=== PATIENT | female | born 1970 | race Two or more races ===

== ENCOUNTER → 2017-04-09 | Outpatient (REF) | payer OTHER | LOC: M SFHCWAGY 08:40 | PROVIDERS: ATTEND Nurse Practitioner Women's Health | DX: Z12.4 Encounter for screening for malignant neoplasm of cervix (principal) ==

== ENCOUNTER → 2017-05-27 | Outpatient (REF) | payer OTHER ==
[2017-05-27 13:32] LABS: FOLLICLE STIMULATING HORMONE 9.9 mIU/mL; LUTEINIZING HORMONE 16.1 mIU/mL
== END ==
LOC: M SFHCPLAZ 11:13
PROVIDERS: ATTEND Nurse Practitioner Women's Health
DX: N95.1 Menopausal and female climacteric states (principal); Z87.42 Personal history of other diseases of the female genital tract; N91.2 Amenorrhea, unspecified

== ENCOUNTER → 2017-05-27 | Outpatient (CLI) | payer OTHER ==
--- NOTE | 2017-05-31 08:08 | REPMRS ---
Patient History The patient states she had a clinical breast exam in 04/2017. Patient is nulliparous. Family history of breast cancer in paternal grandmother at age 70. Took hormonal contraceptives for 15 years beginning at age 22. Digital Woman Screen Mammo: May 27, 2017 - Exam #: [id number] Bilateral CC and MLO view(s) were taken. Technologist: Brianna Hernandez Technologist Prior study comparison: June 23, 2015, digital bilateral screening mammo, performed at [facility]. June 17, 2014, digital bilateral screening mammo, performed at [facility]. June 09, 2013, digital bilateral screening mammo, performed at [facility]. FINDINGS: The breast tissue is heterogeneously dense. This may lower the sensitivity of mammography. There is a moderate amount of heterogeneously dense fibroglandular tissue which is fairly symmetric. There is no interval development of dominant mass, architectural distortion, or clustered microcalcification typical of malignancy. There has been no change in the appearance of the mammogram from the prior studies. ASSESSMENT: BI-RADS/ACR category 1 mammogram. Negative. Recommendation Routine screening mammogram of both breasts in 1 year (for women over age 40). This mammogram was interpreted with the aid of an FDA-approved computer-aided dectection system. Electronically Signed By: Jay Jay Núñez MD 05/31/17 [id number]
== END ==
LOC: M WHC 10:41
PROVIDERS: ATTEND Nurse Practitioner Women's Health
DX: Z12.31 Encounter for screening mammogram for malignant neoplasm of breast (principal)

== ENCOUNTER → 2018-08-13 | Outpatient (REF) | payer OTHER ==
[2018-08-15 14:14] LABS: HPV HYBRID CAPTURE II Negative (Negative)
== END ==
LOC: M SFHCWAGY 10:42
DX: Z12.4 Encounter for screening for malignant neoplasm of cervix (principal); Z87.898 Personal history of other specified conditions

== ENCOUNTER → 2018-08-13 | Outpatient (CLI) | payer OTHER | LOC: M WHC 08:24 | DX: Z12.31 Encounter for screening mammogram for malignant neoplasm of breast (principal) | CPT/HCPCS: 77067 ==

== ENCOUNTER → 2019-08-26 | Outpatient (CLI) | payer OTHER ==
--- NOTE | 2019-08-26 10:36 | REPMRS ---
Patient History The patient states she had a clinical breast exam in 08/2019. Patient is nulliparous. Family history of breast cancer at age 70 in paternal grandmother, breast cancer at age 69 in mother. Taking hormonal contraceptives for 30 years beginning at age 22. 3D TOMOSYNTHESIS WAS PERFORMED. Digital Woman Screen Mammo: August 26, 2019 - Exam #: [id number] Bilateral CC and MLO view(s) were taken. Technologist: Santa Berry, Technologist Prior study comparison: August 13, 2018, bilateral digital woman screen mammo performed at [facility]. May 27, 2017, digital woman screen mammo performed at [facility]. FINDINGS: The breast tissue is extremely dense which could obscure a lesion on mammography. There has been no change in the appearance of the mammogram from the prior studies. There is a moderate amount of residual fibroglandular tissue which is fairly symmetric. There is no interval development of dominant mass, areas of architectural distortion, or clustered microcalcification typical of malignancy. Assessment: BI-RADS/ACR category 1 mammogram. Negative Mammogram. Recommendation Routine screening mammogram in 1 year (for women over age 40). This mammogram was interpreted with the aid of an FDA-approved computer-aided dectection system. THE LIFETIME RISK OF BREAST CANCER IS 26.3%, THEREFORE SUPPLEMENTAL SCREENING MRI OF THE BREASTS IS RECOMMENDED IN 6 MONTHS. Electronically Signed By: Coy Tabor MD 08/26/19 [id number]
== END ==
LOC: M WHC 09:29
PROVIDERS: ATTEND Nurse Practitioner Women's Health
DX: Z12.31 Encounter for screening mammogram for malignant neoplasm of breast (principal); N95.1 Menopausal and female climacteric states; Z80.3 Family history of malignant neoplasm of breast

== ENCOUNTER → 2019-08-28 | Outpatient (REF) | LOC: M LAB LCGH 15:15 | PROVIDERS: ATTEND Surgery | DX: D23.62 Other benign neoplasm of skin of left upper limb, including shoulder (principal) ==

== ENCOUNTER → 2020-02-17 | Outpatient (REF) | payer OTHER ==
[2020-02-17 17:31] LABS: BLOOD UREA NITROGEN 12 MG/DL (7-18); CREATININE FOR GFR 0.67 MG/DL (0.55-1.30); GLOMERULAR FILTRATION RATE > 60.0 (>58)
== END ==
LOC: M PLALAB 15:32
PROVIDERS: ATTEND Nurse Practitioner Women's Health
DX: Z01.812 Encounter for preprocedural laboratory examination (principal)

== ENCOUNTER → 2020-02-19 | Outpatient (CLI) | payer OTHER ==
[~2020-02-19] MED LIST: PROHANCE 279.3MG/ML 15ML VIAL (A9576) As Ordered ONE; PROHANCE 279.3MG/ML 5ML VIAL (A9576) As Ordered ONE
== END ==
LOC: M RAD 09:10
PROVIDERS: ATTEND Nurse Practitioner Women's Health
DX: R92.2 Inconclusive mammogram (principal); Z80.3 Family history of malignant neoplasm of breast; Z53.9 Procedure and treatment not carried out, unspecified reason

== ENCOUNTER → 2020-08-29 | Outpatient (CLI) | payer OTHER ==
--- NOTE | 2020-08-29 10:26 | REPMRS ---
Patient History The patient states she had a clinical breast exam in August 2020. Family history of breast cancer at age 70 in paternal grandmother, breast cancer at age 69 in mother. Taking hormonal contraceptives for 30 years beginning at age 22. 3D TOMOSYNTHESIS WAS PERFORMED. JUSTUS Dumont Digital Woman Screen Mammo: August 29, 2020 - Exam #: [id number] Bilateral CC and MLO view(s) were taken. Technologist: Na Lew, Technologist Prior study comparison: August 26, 2019, bilateral digital woman screen mammo performed at [facility]. August 13, 2018, bilateral digital woman screen mammo performed at [facility]. FINDINGS: The breast tissue is extremely dense which could obscure a lesion on mammography. There has been no change in the appearance of the mammogram from the prior studies. There is a moderate amount of residual fibroglandular tissue which is fairly symmetric. There is no interval development of dominant mass, areas of architectural distortion, or clustered microcalcification typical of malignancy. Assessment: BI-RADS/ACR category 1 mammogram. Negative Mammogram. Recommendation Routine screening mammogram in 1 year (for women over age 40). This mammogram was interpreted with the aid of an FDA-approved computer-aided dectection system. THE LIFETIME RISK OF BREAST CANCER IS 25.9%, THEREFORE SUPPLEMENTAL SCREENING MRI OF THE BREASTS IS RECOMMENDED IN 6 MONTHS. Electronically Signed By: Coy Tabor MD 08/29/20 [id number]
== END ==
LOC: M WHC 09:11
PROVIDERS: ATTEND Nurse Practitioner Women's Health
DX: Z12.31 Encounter for screening mammogram for malignant neoplasm of breast (principal); Z80.3 Family history of malignant neoplasm of breast; Z79.3 Long term (current) use of hormonal contraceptives

== ENCOUNTER → 2021-02-25 | Outpatient (CLI) | payer OTHER ==
[~2021-02-25] MED LIST changes: +CETI10CA2 PO; +JARD1TAB3 PO; +LEVO175T2 PO; +LOSA25TA14 PO; +METF-838 PO; +MONT10TA10 PO; -PROHANCE 279.3MG/ML 15ML VIAL (A9576) As Ordered ONE; -PROHANCE 279.3MG/ML 5ML VIAL (A9576) As Ordered ONE; +ROSU10TA6 PO; +SYMB80INH INH; +VALA1TAB5 PO; +[UNRECOGNIZED DRUG - CODE] SC
== END ==
LOC: M LABSMTC 08:59
PROVIDERS: ATTEND Anesthesiology
DX: Z01.812 Encounter for preprocedural laboratory examination (principal); Z20.822 Contact with and (suspected) exposure to COVID-19

== ENCOUNTER 2021-03-02 06:44 | Day surgery (SDC) | payer OTHER ==
[~2021-03-02] VITALS: Ht 180.3 cm; Wt 110.7 kg
[~2021-03-02 06:44] MED LIST changes: +NS 1,000 ML IV SCH
[2021-03-02] MEDS ORDERED: LIDOCAINE 2% 100MG/5ML SDV (FOR ANES.) As Ordered ONE (07:07)
[2021-03-02] MEDS ORDERED: propofoL 200 MG/20 ML VIAL As Ordered ONE (07:07)
--- NOTE | 2021-03-02 08:07 | ROOR ---
Patient Name: Lyudmila Marquez Procedure Date: 03/02/2021 7:29 AM Date of : 1970 Age: 50 Room: [facility] Gender: Female Note Status: Finalized Procedure: Upper GI endoscopy Indications: Suspected esophageal reflux, Regurgitation Providers: Lalit BLAND MD Referring MD: BRENDA HOLT MD Requesting Provider: Medicines: Monitored Anesthesia Care Complications: No immediate complications. Procedure: Pre-Anesthesia Assessment: - The heart rate, respiratory rate, oxygen saturations, blood pressure, adequacy of pulmonary ventilation, and response to care were monitored throughout the procedure. The Endoscope was introduced through the mouth, and advanced to the second part of duodenum. The upper GI endoscopy was accomplished without difficulty. The patient tolerated the procedure well. Findings: The esophagus was normal. The stomach was normal. The examined duodenum was normal. Bilious fluid was found in the stomach. Impression: - Normal esophagus. - Normal stomach. - Bilious gastric fluid. - Normal examined duodenum. - No specimens collected. Recommendation: - Observe patient's clinical course. - Continue present medications. - Follow an antireflux regimen. - Eat smaller, more frequent meals throughout the day. - Low fat diet. - Liquid/soft foods are tolerated better than solid foods. - Low fiber/well cooked vegetables are tolerated better than high fiber/fibrous foods/raw vegetables. - Avoid medications that inhibit gastric/intestinal motility such as narcotic medications. Procedure Code(s): --- Professional --- 76830, Esophagogastroduodenoscopy, flexible, transoral; diagnostic, including collection of specimen(s) by brushing or washing, when performed (separate procedure) Diagnosis Code(s): --- Professional --- R11.10, Vomiting, unspecified CPT copyright 2019 [employer]. All rights reserved. The codes documented in this report are preliminary and upon turn out worker review may be revised to meet current compliance requirements. Lalit Bland MD Lalit BLAND MD 03/02/2021 8:07:52 AM Electronically signed by Lalit BLAND MD Number of Addenda: 0 Note Initiated On: 03/02/2021 7:29 AM Estimated Blood Loss: Estimated blood loss: none.
--- NOTE | 2021-03-02 08:11 | ROOR ---
Patient Name: Lyudmila Marquez Procedure Date: 03/02/2021 7:30 AM Date of : 1970 Age: 50 Room: [facility] Gender: Female Note Status: Finalized Procedure: Colonoscopy Indications: Hematochezia, Change in bowel habits Providers: Lalit BLAND MD Referring MD: BRENDA HOLT MD Requesting Provider: Medicines: Monitored Anesthesia Care Complications: No immediate complications. Procedure: Pre-Anesthesia Assessment: - The heart rate, respiratory rate, oxygen saturations, blood pressure, adequacy of pulmonary ventilation, and response to care were monitored throughout the procedure. The Colonoscope was introduced through the anus and advanced to the terminal ileum, with identification of the appendiceal orifice and IC valve. The colonoscopy was performed without difficulty. The patient tolerated the procedure well. The quality of the bowel preparation was good. Findings: The perianal and digital rectal examinations were normal. A 5 mm polyp was found in the sigmoid colon. The polyp was sessile. The polyp was removed with a cold snare. Resection and retrieval were complete. Internal hemorrhoids were found during retroflexion. The hemorrhoids were moderate. The exam was otherwise without abnormality on direct and retroflexion views. The colon was redundant. Impression: - One 5 mm polyp in the sigmoid colon, removed with a cold snare. Resected and retrieved. - Internal hemorrhoids. - The colon examination was otherwise normal on direct and retroflexion views. Recommendation: - Repeat colonoscopy in 5 years for surveillance. Procedure Code(s): --- Professional --- 08847, Colonoscopy, flexible; with removal of tumor(s), polyp(s), or other lesion(s) by snare technique Diagnosis Code(s): --- Professional --- K63.5, Polyp of colon K64.8, Other hemorrhoids K92.1, Melena (includes Hematochezia) R19.4, Change in bowel habit Q43.8, Other specified congenital malformations of intestine CPT copyright 2019 [employer]. All rights reserved. The codes documented in this report are preliminary and upon cigar machine feeder review may be revised to meet current compliance requirements. Lalit Bland MD Lalit BLAND MD 03/02/2021 8:11:00 AM Electronically signed by Lalit BLAND MD Number of Addenda: 0 Note Initiated On: 03/02/2021 7:30 AM Estimated Blood Loss: Estimated blood loss: none.
[2021-03-02 08:25] VITALS: BP 135/60
== END 2021-03-02 08:28 | disposition home or self-care (01) ==
LOC: M OPP 06:44
PROVIDERS: ATTEND Internal Medicine Gastroenterology
DX: D12.6 Benign neoplasm of colon, unspecified (principal); Q43.8 Other specified congenital malformations of intestine; K64.8 Other hemorrhoids; R19.4 Change in bowel habit; K92.1 Melena; E11.9 Type 2 diabetes mellitus without complications; Z79.84 Long term (current) use of oral hypoglycemic drugs; Z79.899 Other long term (current) drug therapy; Z88.0 Allergy status to penicillin; Z88.2 Allergy status to sulfonamides

== ENCOUNTER → 2021-03-27 | Outpatient (REF) | payer OTHER ==
[~2021-03-27] MED LIST changes: -NS 1,000 ML IV SCH
[2021-03-27 18:08] LABS: BLOOD UREA NITROGEN 13 MG/DL (7-18); CARBON DIOXIDE LEVEL 22 MEQ/L (21-32); CHLORIDE LEVEL 107 MEQ/L (98-107); CREATININE FOR GFR 0.66 MG/DL (0.55-1.30); GLOMERULAR FILTRATION RATE > 60.0 (>51); GLUCOSE, FASTING 202 MG/DL (70-100); SODIUM LEVEL 138 MEQ/L (136-145)
== END ==
LOC: M PLALAB 15:06
PROVIDERS: ATTEND Nurse Practitioner Women's Health
DX: Z01.812 Encounter for preprocedural laboratory examination (principal)

== ENCOUNTER → 2022-01-31 | Outpatient (CLI) | payer OTHER ==
[~2022-01-31] MED LIST changes: +LOSA25TA13 PO; -LOSA25TA14 PO; -MONT10TA10 PO; +MONT10TA97 PO
[2022-01-31 16:05] LABS: FOLLICLE STIMULATING HORMONE 12.6 mIU/mL; LUTEINIZING HORMONE 2.8 mIU/mL
== END ==
LOC: M PLALAB 11:56
PROVIDERS: ATTEND Specialist
DX: Z12.4 Encounter for screening for malignant neoplasm of cervix (principal); N92.6 Irregular menstruation, unspecified; R87.610 Atypical squamous cells of undetermined significance on cytologic smear of cervix (ASC-US)
CPT/HCPCS: 36415; 83001; 83002; 87624; G0123

== ENCOUNTER → 2022-01-31 | Outpatient (REF) | payer OTHER | LOC: M PLALAB 11:05 | PROVIDERS: ATTEND Specialist | DX: Z01.419 Encounter for gynecological examination (general) (routine) without abnormal findings (principal); Z53.9 Procedure and treatment not carried out, unspecified reason ==

== ENCOUNTER → 2022-01-31 | Outpatient (CLI) | payer OTHER | LOC: M WHC 10:32 | PROVIDERS: ATTEND Specialist | DX: Z12.31 Encounter for screening mammogram for malignant neoplasm of breast (principal) ==

== ENCOUNTER → 2023-09-17 | Outpatient (CLI) | payer OTHER | LOC: M WHC 11:19 | PROVIDERS: ATTEND Specialist | DX: Z12.31 Encounter for screening mammogram for malignant neoplasm of breast (principal); Z80.3 Family history of malignant neoplasm of breast ==

== ENCOUNTER → 2023-09-17 | Outpatient (REF) | payer OTHER | LOC: M SFHCWAGY 18:30 | PROVIDERS: ATTEND Specialist | DX: Z12.4 Encounter for screening for malignant neoplasm of cervix (principal); R87.610 Atypical squamous cells of undetermined significance on cytologic smear of cervix (ASC-US) | CPT/HCPCS: 87624; G0123 ==